=== PATIENT | female | born 1960 | race Caucasian/White ===

== ENCOUNTER 2017-03-24 12:32 | Inpatient (IN) | payer MEDICAID ==
[~2017-03-24] VITALS: Ht 154.9 cm; Wt 80.3 kg
[2017-03-24 12:40] VITALS: BP 133/69
[2017-03-24] MEDS ORDERED: NACL 0.9% 1,000 ML IV SCH (14:56)
[2017-03-24] MEDS ORDERED: ALUMINUM HYD/MAG/SIMETHICONE 30 ML, DICYCLOMINE HCL LIQUID 20 MG, LIDOCAINE VISCOUS 2% ... PO ONE ×3 (15:00)
[2017-03-24] MEDS ORDERED: KETOROLAC 30 MG/ML VIAL IVP ONE (15:00)
[2017-03-24] MEDS ORDERED: ONDANSETRON 4 MG/2 ML VIAL IVP ONE (15:00)
[2017-03-24 15:49] LABS: BASOPHILS # (AUTO) 0.2 K/uL (0.00-0.22); EOSINOPHILS # (AUTO) 0.1 K/uL (0-0.4); EOSINOPHILS % (AUTO) 1.2 % (0.0-4.0); HEMATOCRIT 43.3 % (36-48); LYMPHOCYTES % (AUTO) 33.6 % (20.5-51.1); MEAN CORPUSCULAR HEMOGLOBIN 28 pg (27-31); MEAN CORPUSCULAR HGB CONC 32 g/dL (33-37); MEAN CORPUSCULAR VOLUME 86 fL (80-94); MONOCYTES # (AUTO) 0.5 K/uL (0.8-1.0); NEUTROPHILS # (AUTO) 3.3 K/uL (1.8-7.7); PLATELET COUNT (AUTO) 154 K/uL (140-450); RED BLOOD CELL COUNT(AUTO) 5.01 MIL/uL (4.20-5.40); RED CELL DISTRIBUTION WIDTH 14.6 % (11.6-13.7); WHITE BLOOD COUNT (AUTO) 6.1 K/uL (4.8-10.8)
[2017-03-24 16:02] LABS: APPEARANCE,URINE CLEAR (CLEAR); BLOOD, URINE TRACE-I (NEGATIVE); COLOR,URINE YELLOW (YELLOW); LEUKOCYTE ESTERASE ,URINE TRACE (NEGATIVE); NITRITE, URINE NEGATIVE (NEGATIVE); PROTEIN,URINE NEGATIVE (NEGATIVE); UGLUCOSE NEGATIVE (NEGATIVE); UROBILINOGEN,URINE 0.2 EU/dL (0.2 - 1)
[2017-03-24 16:10] LABS: ANION GAP 14.3 (8-16); CALCIUM 9.7 mg/dL (8.5-10.1); CARBON DIOXIDE 27.9 mmol/L (21-32); CREATININE 0.8 mg/dL (0.6-1.3); POTASSIUM 4.2 mmol/L (3.5-5.1); TOTAL BILIRUBIN 3.6 mg/dL (0.0-1.0); TOTAL PROTEIN, SERUM 8.7 g/dL (6.4-8.2)
--- NOTE | 2017-03-24 16:15 | NUR ---
Pt taken to bed 8.
[2017-03-24 16:17] LABS: BILIRUBIN,URINE NEGATIVE (NEGATIVE)
[2017-03-24 16:21] LABS: BACTERIA,URINE 1+ /HPF (None Seen); RBC,URINE 0-3 /HPF (0-5); SQUAMOUS EPITHELIAL CELL,UR 0-3 /LPF (0-3 (FEW)); WBC,URINE 0-5 /HPF (0-5)
--- NOTE | 2017-03-24 16:23 | NUR ---
56/F c/o epigastric pain x2 weeks. Pt describes pain to epigastric area, dull, 3/10. Pt states the pain is worse after eating. Pt also c/o nausea and vomiting. Denies fever, c/o chills. AOX4, thai speaking. Skin warm and dry, jaundice. Abdomen soft, non tender, active bowel sounds x 4 quadrants. Denies s/s of UTI. VSS. Pt placed in a gown, placed on case monitor, pulse oximetry and blood pressure monitoring.
--- NOTE | 2017-03-24 16:35 | NUR ---
Patient being evaluated by physician at bedside.
--- NOTE | 2017-03-24 16:42 | NUR ---
Pt instructed to be NPO at this time per Dr. Leo order. Pt verbalized understanding.
--- NOTE | 2017-03-24 16:55 | NUR ---
PT ADMITS PAIN IS 2 / 10 AT THIS TIME, MEDICATED FOR PAIN CONTROL. WILL CONTINUE TO OBSERVE FOR PAIN CONTROL
[2017-03-24] MEDS ORDERED: PIPERACILLIN/TAZOBACTAM 4.5 GM in DEXTROSE 5% 100 ML IV ONE (17:45)
--- NOTE | 2017-03-24 17:45 | NUR ---
Pt ambulated to restroom with steady gait. Family is at bedside.
[2017-03-24] MEDS ORDERED: PIPERACILLIN/TAZOBACTAM 2.25 GM VIAL IV ONE (18:05)
--- NOTE | 2017-03-24 18:07 | NUR ---
Patient will be admitted to care of Dr. Ponce. GI consult Jenaro contacted and aware. Admited to Tele. Will go to room 105-B. Belongings list completed. Report to Mynor AMEZCUA.
--- NOTE | 2017-03-24 18:25 | NUR ---
PT ON UNIT FROM ER. PT AAOX4. NO S/S OF ACUTE DISTRESS. PT DENIES PAIN AT THIS TIME. IV SITE PATENT AND INTACT. SON AT BEDSIDE. PT ORIENTED TO ROOM. CALL LIGHT WITHIN REACH. SAFETY MEASURES ENSURED. WILL CONTINUE TO MONITOR.
[2017-03-24 18:30] VITALS: BP 132/70
--- NOTE | 2017-03-24 19:19 | NUR ---
ENDORSED PLAN OF CARE TO NIGHT RN. PT REMAINS STABLE.
--- NOTE | 2017-03-24 19:20 | NUR ---
RECEIVED REPORT FROM MORNING SHIFT RN AT BEDSIDE, PT IS AAOX4, ABLE TO FOLLOW COMMANDS AND MAKE NEEDS KNOWN, EGYPTIAN SPEAKING ONLY. VSS, DENIES PAIN, NO S/S OF SOB/DISTRESS, CLEAR LUNG SOUND, ON RA. DENIES CHEST PAIN, SR ON TELE MONITOR. TENDER ABDOMEN NOTED WITH ACTIVE BOWEL SOUNDS, CONTINENT WITH B&B, AMBULATE WITH STEADY GAIT, AFEBRILE, SKIN IS INTACT, WARM AND DRY TO TOUCH, IV SITE TO RIGHT AC 20GA, PATENT AND SL. EXPLAINED PLAN OF CARE TO PT AND FAMILY MEMBERS, VERBALIZED UNDERSTANDING, PLACED PATIENT AT A COMFORT POSITION, SAFETY MEASURES IN PLACE, CALL LIGHT WITHIN REACH, WILL CONTINUE TO MONITOR.
[2017-03-24] MEDS ORDERED: ACETAMINOPHEN 325 MG TAB PO PRN (19:45)
[2017-03-24] MEDS ORDERED: MORPHINE SULFATE 2 MG/ML SYR IVP PRN (19:45)
[2017-03-24] MEDS ORDERED: DOCUSATE SODIUM 100 MG GELCAP PO PRN (19:45)
[2017-03-24] MEDS ORDERED: ONDANSETRON 4 MG/2 ML VIAL IM/IVP PRN (19:45)
[2017-03-24 20:00] VITALS: BP 116/74
[2017-03-24 20:20] LABS: PARTIAL THROMBOPLASTIN TIME 25.4 secs (22-35.6)
[2017-03-24 20:23] LABS: PROTHROMBIN TIME 10.3 secs (10.8-13.4)
[2017-03-24 20:33] LABS: CHOL/HDL RATIO 4.2 (1-4.5); FREE T4 (FREE THYROXINE) 1.31 ng/dL (0.76-1.46); MAGNESIUM 2.1 mg/dL (1.8-2.4); THYROID STIMULATING HORMONE 1.82 uIU/mL (0.34-3.76)
--- NOTE | 2017-03-24 20:50 | NUR ---
DR. FLEMING CAME TO EVALUATE PT AT BEDSIDE, WILL CARRY OUT NEW ORDERS.
[2017-03-24] MEDS: NACL 0.9% 1,000 ML IV SCH (21:00)
--- NOTE | 2017-03-24 22:00 | NUR ---
PT SINGED THE INFORM CONSENT FOR SURGERY, EXPLAINED NPO AFTER MIDNIGHT, PT VERBALIZED UNDERSTANDING IT.
[2017-03-24] MEDS ORDERED: PIPERACILLIN/TAZOBACTAM 3.375 GM VIAL IV ONE (23:34)
[2017-03-24] MEDS: PIPER/TAZO 3.375GM/D5W PREMIX 50 ML IV SCH (23:43)
[2017-03-25] VITALS: BP 112/72
--- NOTE | 2017-03-25 | NUR ---
PT IS ASLEEP IN BED, NO CHANGE OF CONDITION AT THIS TIME, DENIES PAIN, VSS.
[2017-03-25 04:00] VITALS: BP 100/46
--- NOTE | 2017-03-25 04:00 | NUR ---
PT IS ASLEEP IN BED, DENIES PAIN, NO S/S OF DISTRESS, SR ON TELE MONITOR, VSS.
[2017-03-25] MEDS: NACL 0.9% 1,000 ML IV SCH ×2 (06:00→12:23)
[2017-03-25] MEDS: PIPER/TAZO 3.375GM/D5W PREMIX 50 ML IV SCH ×3 (06:17→17:09)
[2017-03-25] MEDS ORDERED: PIPERACILLIN/TAZOBACTAM 3.375 GM VIAL IV ONE (06:18)
[2017-03-25 06:51] LABS: BASOPHILS # (AUTO) 0.1 K/uL (0.00-0.22); BASOPHILS % (AUTO) 1.3 % (0.0-2.0); EOSINOPHILS # (AUTO) 0.1 K/uL (0-0.4); HEMOGLOBIN 13.3 g/dL (12.0-16.0); LYMPHOCYTES % (AUTO) 29.4 % (20.5-51.1); MEAN CORPUSCULAR HEMOGLOBIN 29 pg (27-31); MEAN CORPUSCULAR HGB CONC 33 g/dL (33-37); MEAN CORPUSCULAR VOLUME 86 fL (80-94); MONOCYTES # (AUTO) 0.6 K/uL (0.8-1.0); MONOCYTES % (AUTO) 9.5 % (1.7-9.3); NEUTROPHILS % (AUTO) 57.8 % (42.2-75.2); PLATELET COUNT (AUTO) 128 K/uL (140-450); RED BLOOD CELL COUNT(AUTO) 4.63 MIL/uL (4.20-5.40); RED CELL DISTRIBUTION WIDTH 14.6 % (11.6-13.7); WHITE BLOOD COUNT (AUTO) 6.8 K/uL (4.8-10.8)
[2017-03-25 06:56] LABS: ANION GAP 14.3 (8-16); CALCIUM 8.4 mg/dL (8.5-10.1); CARBON DIOXIDE 25.8 mmol/L (21-32); CREATININE 0.8 mg/dL (0.6-1.3); POTASSIUM 4.1 mmol/L (3.5-5.1)
--- NOTE | 2017-03-25 07:09 | NUR ---
REPORT GIVEN TO MORNING SHIFT NURSE FOR CONTINUE OF CARE, PT IS IN STABLE CONDITION AT THIS TIME.
[2017-03-25 07:10] LABS: ALBUMIN 3.3 g/dL (3.4-5.0); BILIRUBIN,DIRECT 2.6 mg/dL (0.0-0.3); PHOSPHORUS 3.7 mg/dL (2.5-4.9); TOTAL BILIRUBIN 3.9 mg/dL (0.0-1.0); TOTAL PROTEIN, SERUM 7.3 g/dL (6.4-8.2)
--- NOTE | 2017-03-25 07:10 | NUR ---
RECEIVED PATIENT REPORT AT BEDSIDE. PATIENT AWAKE, ALERT, AND ORIENTED. NO S/S OF DISTRESS NOTED. PATIENT ON ROOM AIR. PT DENIES PAIN. PATIENT SCHEDULED TO HAVE ERCP DONE TODAY. PATIENT AWARE. PATIENT ON TELE MONITORING. IV LINE TO THE RIGHT AC INTACT WITH IVF INFUSING WELL. BED LOWERED WITH CALL LIGHT WITHIN REACH. WILL CONTINUE TO MONITOR
[2017-03-25 08:00] VITALS: BP 105/55
[2017-03-25] MEDS ORDERED: PROPOFOL 200 MG/20 ML VIAL IV ONE (08:04)
--- NOTE | 2017-03-25 08:06 | NUR ---
PT LEFT THE UNIT FOR ERCP
[2017-03-25] MEDS: LACTOBACILLUS RHAMNOSUS GG 1 EACH CAP PO SCH (09:00)
--- NOTE | 2017-03-25 09:01 | NUR ---
PATIENT HAS BEEN SCREENED AND CATEGORIZED HIGH NUTRITION RISK. PATIENT WILL BE SEEN WITHIN 1-2 DAYS OF ADMISSION. 03/25/17-03/26/[address] Addendum: 03/25/17 at [address] PATIENT HAS BEEN RESCREENED AND RE-CATEGORIZED MODERATE NUTRITION RISK. PATIENT WILL BE SEEN WITHIN 3-5 DAYS OF ADMISSION. 03/27/17-03/29/[address]
--- NOTE | 2017-03-25 10:00 | NUR ---
PATIENT BACK IN THE UNIT. PATIENT AWAKE, ALERT, AND ORIENTED. NO C/O OF PAIN. TEMP 97.0 HR: 71 BP: 116/61 O2: 97% ON ROOM AIR
--- NOTE | 2017-03-25 10:10 | NUR ---
PER DR FLEMING, KEEP PATIENT NPO UNTIL SEEN BY SURGEON. OK TO GIVE ICE CHIPS
--- NOTE | 2017-03-25 11:00 | NUR ---
SPOKE WITH DR VAZQUEZ. ORDERS TO OBTAIN CONSENT FOR LAPAROSCOPIC CHOLECYSTECTOMY, POSSIBLE CHOLANGIOGRAM, POSSIBLE EXPLORATORY LAPAROTOMY. ORDERS FULL LIQUID DIET FOR THE PATIENT, NPO EXCEPT MEDS AFTER MIDNIGHT.
[2017-03-25 12:00] VITALS: BP 124/58
[2017-03-25 16:00] VITALS: BP 123/56
--- NOTE | 2017-03-25 19:47 | NUR ---
PATIENT REPORT GIVEN AT BEDSIDE. PATIENT ENDORSED IN STABLE CONDITION
--- NOTE | 2017-03-25 19:48 | NUR ---
RECEIVED PT FROM LINNETTE AMEZCUA PT IS AAOX4 AMBULATORY , ON TELEMETRY SRIV ON RT FA INFUSING WELL RELATIVES AT BED SIDE AND DR VAZQUEZ AT BED SIDE EXPLAIN TO THE PT TO BE NPO FOR SURGERY TOMORRO AND TO SIGN CONSENT
[2017-03-25 20:00] VITALS: BP 119/62
--- NOTE | 2017-03-25 21:04 | NUR ---
PT RESTING ON BED DENIES ANY PAIN AT THIS TIME ON TELMETRY SR , VOIDING WELL
[2017-03-26] VITALS: BP 118/68
--- NOTE | 2017-03-26 | NUR ---
PT NKPO POST MD REMAIN STABLE NOT DISTRESS NOTED ON TELEMETRY SR
[2017-03-26] MEDS: PIPER/TAZO 3.375GM/D5W PREMIX 50 ML IV SCH ×4 (00:27→17:05)
[2017-03-26] MEDS: NACL 0.9% 1,000 ML IV SCH ×2 (00:28→05:03)
[2017-03-26 04:00] VITALS: BP 107/59
--- NOTE | 2017-03-26 04:00 | NUR ---
DENIES ANY PAIN NOT DISTRESS NOTED ON TELEMETRY SR VOIDING WELL
--- NOTE | 2017-03-26 06:28 | NUR ---
PT NPO CONSENT SIGNED AND TICKET TO RIDE READY FOR LAPAROSCOPY PAYAL POSS OPEN
--- NOTE | 2017-03-26 07:10 | NUR ---
RECEIVED PATIENT REPORT. PATIENT AWAKE, ALERT, AND ORIENTED. NO S/S OF DISTRESS NOTED. NO C/O PAIN AT THIS TIME. PATIENT'S DAUGHTER PRESENT AT BEDSIDE. IV LINE TO THE RIGHT AC INTACT WITH IVF INFUSING WELL. PATIENT SCHEDULED TO HAVE LAP PAYAL TODAY. PATIENT ON TELE MONITORING. BED LOWERED WITH CALL LIGHT WITHIN REACH. WILL CONTINUE TO MONITOR
[2017-03-26 07:33] LABS: BASOPHILS # (AUTO) 0.1 K/uL (0.00-0.22); BASOPHILS % (AUTO) 1.6 % (0.0-2.0); EOSINOPHILS # (AUTO) 0.2 K/uL (0-0.4); HEMATOCRIT 38.1 % (36-48); HEMOGLOBIN 12.7 g/dL (12.0-16.0); MEAN CORPUSCULAR HEMOGLOBIN 29 pg (27-31); MEAN CORPUSCULAR HGB CONC 33 g/dL (33-37); MEAN CORPUSCULAR VOLUME 87 fL (80-94); MONOCYTES # (AUTO) 0.5 K/uL (0.8-1.0); MONOCYTES % (AUTO) 8.2 % (1.7-9.3); NEUTROPHILS % (AUTO) 53.2 % (42.2-75.2); PLATELET COUNT (AUTO) 136 K/uL (140-450); RED BLOOD CELL COUNT(AUTO) 4.37 MIL/uL (4.20-5.40); RED CELL DISTRIBUTION WIDTH 14.6 % (11.6-13.7); WHITE BLOOD COUNT (AUTO) 5.8 K/uL (4.8-10.8)
--- NOTE | 2017-03-26 07:58 | NUR ---
PATIENT LEFT THE UNIT FOR LAP PAYAL
[2017-03-26 08:00] VITALS: BP 128/79
[2017-03-26 08:01] LABS: AMYLASE 42 U/L (25-115); LIPASE 172 U/L (73-393)
[2017-03-26 08:03] LABS: ANION GAP 13.6 (8-16); CREATININE 0.7 mg/dL (0.6-1.3); POTASSIUM 3.6 mmol/L (3.5-5.1); TOTAL BILIRUBIN 1.8 mg/dL (0.0-1.0); TOTAL PROTEIN, SERUM 6.7 g/dL (6.4-8.2)
[2017-03-26] MEDS ORDERED: BUPIVACAINE-MPF/EPI 0.25% 30 ML VIAL INJ ONE (08:12)
[2017-03-26] MEDS ORDERED: MIDAZOLAM 2 MG/2 ML VIAL ONE (08:12)
[2017-03-26] MEDS ORDERED: fentaNYL 0.05 MG/ML VIAL ONE (08:13)
[2017-03-26] MEDS ORDERED: DESFLURANE 240 ML BTL INH ONE (08:17)
[2017-03-26] MEDS ORDERED: ROCURONIUM 50 MG/5 ML VIAL IV ONE (08:17)
[2017-03-26] MEDS ORDERED: PROPOFOL 200 MG/20 ML VIAL IV ONE (08:17)
[2017-03-26] MEDS ORDERED: DEXAMETHASONE 4 MG/ML VIAL ONE (08:17)
[2017-03-26] MEDS ORDERED: GLYCOPYRROLATE 0.2 MG/ML VIAL ONE (08:17)
[2017-03-26] MEDS ORDERED: KETOROLAC 30 MG/ML VIAL ONE (08:17)
[2017-03-26] MEDS ORDERED: ONDANSETRON 4 MG/2 ML VIAL ONE ×2 (08:17→10:40)
[2017-03-26] MEDS ORDERED: SUCCINYLCHOLINE CHLORIDE 200 MG/10 ML VIAL IVP ONE (08:17)
[2017-03-26] MEDS ORDERED: NEOSTIGMINE 1:1000 10 MG/10 ML VIAL ONE (08:17)
[2017-03-26] MEDS ORDERED: LIDOCAINE 2% 100 MG/5 ML SYR IVP ONE (08:17)
[2017-03-26] MEDS: LACTOBACILLUS RHAMNOSUS GG 1 EACH CAP PO SCH (09:00)
[2017-03-26] MEDS ORDERED: ONDANSETRON 4 MG/2 ML VIAL IVP PRN (09:10)
[2017-03-26 09:32] LABS: T4 (THYROXINE) 11.2 ug/dL (4.5-12.0)
[2017-03-26] MEDS ORDERED: THROMBIN KIT 20 MU VIAL TP ONE (09:43)
[2017-03-26] MEDS: HYDROmorphone 1 MG/ML AMP IVP PRN ×4 (10:25→10:55)
[2017-03-26] MEDS ORDERED: HYDROmorphone PFS 2 MG/ML SYR ONE (10:39)
[2017-03-26 11:03] LABS: TOTAL BILIRUBIN 1.8 mg/dL (0.0-1.0); TOTAL PROTEIN, SERUM 6.7 g/dL (6.4-8.2)
--- NOTE | 2017-03-26 11:03 | NUR ---
PT OFF UNIT
--- NOTE | 2017-03-26 11:30 | NUR ---
PATIENT BACK FROM SURGERY. PATIENT AWAKE BUT LETHARGIC. VSS WITHIN NORMAL LIMITS. NO C/O PAIN AT THIS TIME. 4 LAPAROSCOPIC INCISIONS NOTED TO THE ABDOMEN. INCISIONS CLEAN DRY AND INTACT. WILL CONTINUE TO MONITOR
[2017-03-26 11:42] LABS: ANION GAP 16.9 (8-16); CARBON DIOXIDE 22.8 mmol/L (21-32); CREATININE 0.8 mg/dL (0.6-1.3); POTASSIUM 3.7 mmol/L (3.5-5.1)
[2017-03-26 11:48] LABS: TOTAL BILIRUBIN 1.6 mg/dL (0.0-1.0); TOTAL PROTEIN, SERUM 6.8 g/dL (6.4-8.2)
[2017-03-26] MEDS: DEXT 5% / NACL 0.45% 1,000 ML IV SCH ×2 (11:52→20:15)
[2017-03-26 12:00] VITALS: BP 105/57
[2017-03-26 16:00] VITALS: BP 113/59
--- NOTE | 2017-03-26 17:10 | NUR ---
ASSISTED PATIENT TO AMBULATE TO THE BATHROOM TO VOID BUT PATIENT C/O OF DIZZINESS AND REQUESTED TO JUST USE THE BED HAN. PATIENT REPORTS OF TOLERABLE PAIN. VITAL SIGNS WITHIN NORMAL LIMITS. WILL CONTINUE TO MONITOR
[2017-03-26] MEDS: HYDROcodone/APAP 7.5/325 MG 1 TAB PO PRN (19:04)
--- NOTE | 2017-03-26 19:34 | NUR ---
PATIENT IS CURRENTLY RESTING IN BED GHANAIAN SPEAKING IVF INFUSING WELL IV SITE PATENT,ABD INCISION X3 CURRENTLY DRY AND INTACT PATIENT DENIES PAIN.CONTINUES TO HAVE SCD'S TO BOTH LOWER EXTREMITIES.PATIENT USED THE BEDSIDE COMMODE AND VOIDED AGAIN.FAMILY AT BEDSIDE WILL CONTINUE TO MONITOR.
--- NOTE | 2017-03-26 19:34 | NUR ---
PATIENT REPORT GIVEN AT BEDSIDE. PATIENT ENDORSED IN STABLE CONDITION
--- NOTE | 2017-03-26 19:55 | NUR ---
BED LINEN AND BED PADS CHANGED PER PATIENT'S REQUEST.
--- NOTE | 2017-03-26 20:00 | NUR ---
Patient's Plan of Care was discussed and reviewed with VETERINARY LABORATORY TECHNICIAN: OLEG FLYNN
[2017-03-26 20:48] VITALS: BP 135/79
--- NOTE | 2017-03-26 21:30 | NUR ---
PATIENT IS CURRENTLY SLEEPING COMFORTABLY IN BED AT THIS TIME WILL CONTINUE TO MONITOR.CALL LIGHT WITHIN REACH.
[2017-03-27 00:01] VITALS: BP 111/66
--- NOTE | 2017-03-27 00:15 | NUR ---
PATIENT ASSISTED TO THE BATHROOM AND BACK TO BED PATIENT TOLERATED ACTIVITY WELL.CONTINUES TO HAVE SCD'S IN PLACE AND STATES,"I WOULD LIKE SOME PAIN MEDICATION PATIENT STATES HER PAIN IS INCREASING TO 5/10."PATIENT WILL BE MEDICATED FOR PAIN.CALL LIGHT WITHIN REACH WILL CONTINUE TO MONITOR. Addendum: 03/27/17 at 0102 by Lexus Mcdonald LVN ACTUAL TIME ASSISTED TO THE BATHROOM WAS 0030
[2017-03-27] MEDS: DEXT 5% / NACL 0.45% 1,000 ML IV SCH ×3 (00:37→12:18)
[2017-03-27] MEDS: PIPER/TAZO 3.375GM/D5W PREMIX 50 ML IV SCH ×2 (00:41→05:34)
[2017-03-27] MEDS: HYDROcodone/APAP 7.5/325 MG 1 TAB PO PRN ×4 (00:41→20:48)
--- NOTE | 2017-03-27 02:24 | NUR ---
PATIENT IS CURRENTLY SLEEPING IN BED IVF INFUSING WELL IV SITE PATENT.WILL CONTINUE TO MONITOR.
--- NOTE | 2017-03-27 04:02 | NUR ---
PATIENT SLEEPING COMFORTABLY IN BED IN NO DISTRESS WILL CONTINUE TO MONITOR.CALL LIGHT WITHIN REACH.
--- NOTE | 2017-03-27 06:00 | NUR ---
PATIENT STABLE RESTING IN BED IVF INFUSING WELL IV SITE PATENT NO COMPLAINS OF PAIN OR DISCOMFORT NOTED.
[2017-03-27 06:27] LABS: BASOPHILS # (AUTO) 0.1 K/uL (0.00-0.22); BASOPHILS % (AUTO) 0.8 % (0.0-2.0); EOSINOPHILS # (AUTO) 0.1 K/uL (0-0.4); EOSINOPHILS % (AUTO) 1.4 % (0.0-4.0); HEMATOCRIT 38.2 % (36-48); HEMOGLOBIN 12.6 g/dL (12.0-16.0); LYMPHOCYTES # (AUTO) 1.4 K/uL (2.5-16.5); LYMPHOCYTES % (AUTO) 13.2 % (20.5-51.1); MEAN CORPUSCULAR HEMOGLOBIN 29 pg (27-31); MEAN CORPUSCULAR HGB CONC 33 g/dL (33-37); MEAN CORPUSCULAR VOLUME 87 fL (80-94); MONOCYTES # (AUTO) 0.8 K/uL (0.8-1.0); MONOCYTES % (AUTO) 8.1 % (1.7-9.3); NEUTROPHILS # (AUTO) 7.9 K/uL (1.8-7.7); NEUTROPHILS % (AUTO) 76.5 % (42.2-75.2); PLATELET COUNT (AUTO) 165 K/uL (140-450); RED CELL DISTRIBUTION WIDTH 14.3 % (11.6-13.7); WHITE BLOOD COUNT (AUTO) 10.3 K/uL (4.8-10.8)
[2017-03-27 07:09] LABS: ANION GAP 10.4 (8-16); CALCIUM 8.1 mg/dL (8.5-10.1); CARBON DIOXIDE 29.1 mmol/L (21-32); CREATININE 0.8 mg/dL (0.6-1.3); POTASSIUM 3.5 mmol/L (3.5-5.1); TOTAL BILIRUBIN 1.6 mg/dL (0.0-1.0)
--- NOTE | 2017-03-27 07:24 | NUR ---
REPORT ENDORSED TO SEVEN QUIGLEY SHE WILL RESUME CARE OF THE PATIENT.
--- NOTE | 2017-03-27 07:25 | NUR ---
Received patient from service delivery manager, RN, patient alert, awake and oriented x 4 denies any pain, daughter at bedside.
[2017-03-27 08:00] VITALS: BP 127/71
[2017-03-27] MEDS ORDERED: LACTOBACILLUS RHAMNOSUS GG 1 EACH CAP PO SCH (12:14)
[2017-03-27 12:41] LABS: HEMOGLOBIN A1C 5.6 % (4.8-5.6)
--- NOTE | 2017-03-27 14:42 | NUR ---
patient tolerated her lunch well, no nausea and vomiting, denies pain at this time
--- NOTE | 2017-03-27 18:42 | NUR ---
Patient now sleeping, resting comfortably in bed, family at bedside, no signs of distress noted.
--- NOTE | 2017-03-27 19:06 | NUR ---
SBAR report given to Shila, RN at bedside, patient now awake, denies any pain at this time.
--- NOTE | 2017-03-27 19:25 | NUR ---
RECEIVED FROM AM RN AWAKE AND ALERT. NO SOB. DENIES PAIN AT THIS TIME. SITTING IN CHAIR AND SON WITH HER. CALL LIGHT WITH IN REACH AND CARE PLANS FOR THE NIGHT EXPLAINED TO THEM. DX. OF COMMON BILE DUCT OBSTRUCTION. S/P LAP CHOLECYSTECTOMY 03/25/17. ABLE TO VERBALIZE NEEDS WELL IN IRISH. IVF SITE TO RIGHT HAND INTACT AND NO INFILTRATION NOTED.
[2017-03-27 20:04] VITALS: BP 126/71
--- NOTE | 2017-03-27 22:30 | NUR ---
PT. AMBULATING THE HALLWAY WITH DAUGHTER BESIDE HER. ENCOURAGED TO CALL IF SHE NEEDS ANY HELP. NO SOB.
--- NOTE | 2017-03-28 00:31 | NUR ---
SLEEPING AT THIS TIME. NO RESTLESSNESS. CALL LIGHT WITH IN REACH.
--- NOTE | 2017-03-28 03:17 | NUR ---
WOKE UP AND REQUESTED FOR BLANKET RT SHE SAID SHE IS SO COLD. PROVIDED WITH WARM BLANKET. WENT BACK TO SLEEP. NO COMPLAINTS DONE FURTHER. CALL LIGHT WITH IN REACH.
[2017-03-28] MEDS: HYDROcodone/APAP 7.5/325 MG 1 TAB PO PRN (04:47)
--- NOTE | 2017-03-28 04:53 | NUR ---
WOKE UP AND REQUESTED FOR JUICE AND PAIN RELIEVER. MEDICATED REQUESTED. DAUGHTER AT BEDSIDE. USES CALL LIGHT FOR HELP. NO BLEEDING TO INCISION SITE.
[2017-03-28 05:55] LABS: BASOPHILS # (AUTO) 0.2 K/uL (0.00-0.22); BASOPHILS % (AUTO) 1.4 % (0.0-2.0); EOSINOPHILS # (AUTO) 0.1 K/uL (0-0.4); EOSINOPHILS % (AUTO) 0.7 % (0.0-4.0); HEMATOCRIT 37.9 % (36-48); HEMOGLOBIN 12.3 g/dL (12.0-16.0); MEAN CORPUSCULAR HEMOGLOBIN 28 pg (27-31); MEAN CORPUSCULAR HGB CONC 33 g/dL (33-37); MEAN CORPUSCULAR VOLUME 87 fL (80-94); MONOCYTES % (AUTO) 9.3 % (1.7-9.3); NEUTROPHILS # (AUTO) 7.4 K/uL (1.8-7.7); NEUTROPHILS % (AUTO) 69.6 % (42.2-75.2); RED BLOOD CELL COUNT(AUTO) 4.37 MIL/uL (4.20-5.40); RED CELL DISTRIBUTION WIDTH 13.9 % (11.6-13.7)
[2017-03-28 06:17] LABS: CALCIUM 8.5 mg/dL (8.5-10.1); CREATININE 0.7 mg/dL (0.6-1.3)
--- NOTE | 2017-03-28 06:32 | NUR ---
SLEEPING STILL AT THIS TIME . NO COMPLAINTS DONE.
--- NOTE | 2017-03-28 07:05 | NUR ---
ASSUMED CONTINUITY OF CARE. NO SIGNS AND SYMPTOMS OF ACUTE DISTRESS NOTED. INITIAL ASSESSMENT DONE. KEEP COMFORTABLE ON BED. PT. DAUGHTER -BLANCA ON BEDSIDE. EXPLAINED DIAGNOSIS, PLAN OF CARE, POST-OP CARE, PAIN MANAGEMENT TEACHING, USE OF CALL LIGHT/BED/TV/BATHROOM. VERBALIZED UNDERSTANDING. CALL LIGHT WITHIN REACH.
[2017-03-28 07:38] LABS: PLATELET COUNT (AUTO) 130 K/uL (140-450); WHITE BLOOD COUNT (AUTO) 10.7 K/uL (4.8-10.8)
[2017-03-28 07:54] VITALS: BP 94/51
[2017-03-28] MEDS: LACTOBACILLUS RHAMNOSUS GG 1 EACH CAP PO SCH (08:30)
[2017-03-28] MEDS ORDERED: POTASSIUM CHLORIDE 40 MEQ, LIDOCAINE 1% 25 MG in NACL 0.9% 250 ML IV SCH (10:00)
--- NOTE | 2017-03-28 10:31 | NUR ---
AMBULATES ON HALLWAY, ACCOMPANIED BY PT. DAUGHTER -BLANCA. PT. TOLERATED WELL. NO C/O PAIN. NO SOB, NOTED.
[2017-03-28] MEDS ORDERED: MAGNESIUM HYDROXIDE 2400 MG/30 ML UDC PO PRN (10:35)
[2017-03-28 12:00] VITALS: BP 129/71
[2017-03-28] MEDS ORDERED: POTASSIUM CHLORIDE 20% 40 MEQ/15 ML UDC PO SCH (12:00)
--- NOTE | 2017-03-28 12:00 | NUR ---
VITALS SIGNS STABLE. NO C/O PAIN. WILL MONITOR.
[2017-03-28 13:20] LABS: CALCIUM 8.6 mg/dL (8.5-10.1); CARBON DIOXIDE 30.7 mmol/L (21-32); CREATININE 0.6 mg/dL (0.6-1.3); POTASSIUM 3.7 mmol/L (3.5-5.1); TOTAL BILIRUBIN 1.2 mg/dL (0.0-1.0); TOTAL PROTEIN, SERUM 7.4 g/dL (6.4-8.2)
[2017-03-28] MEDS ORDERED: ACET-2869 PO (13:44)
[2017-03-28] MEDS ORDERED: DOCU-264 PO (13:44)
--- NOTE | 2017-03-28 15:08 | NUR ---
D/C VIA WHEELCHAIR, ACCOMPANIED BY PT. DAUGHTER -BLANCA. NO C/O PAIN. NO ACUTE DISTRESS NOTED. IN STABLE CONDITION. INFORMED CHARGE NURSE GRACIE FUNK.
== END 2017-03-28 15:08 | disposition home or self-care (01) | DRG 263 ==
LOC: MED 12:32 → MTU 18:18
PROVIDERS: ADMIT Family Medicine; ATTEND Family Medicine
PROC: 0F798ZZ Dilation of Common Bile Duct, Via Natural or Artificial Opening Endoscopic (ICD-10-PCS; 2017-03-25)
PROC: 0FC98ZZ Extirpation of Matter from Common Bile Duct, Via Natural or Artificial Opening Endoscopic (ICD-10-PCS; 2017-03-25)
PROC: BF101ZZ Fluoroscopy of Bile Ducts using Low Osmolar Contrast (ICD-10-PCS; 2017-03-25)
PROC: 0FT44ZZ Resection of Gallbladder, Percutaneous Endoscopic Approach (ICD-10-PCS; principal; 2017-03-26 09:10)
DX: K80.63 Calculus of gallbladder and bile duct with acute cholecystitis with obstruction (principal); K26.9 Duodenal ulcer, unspecified as acute or chronic, without hemorrhage or perforation; N39.0 Urinary tract infection, site not specified; E78.5 Hyperlipidemia, unspecified; E66.9 Obesity, unspecified; K66.0 Peritoneal adhesions (postprocedural) (postinfection); Z68.33 Body mass index [BMI] 33.0-33.9, adult
CPT/HCPCS: 36415; 71010; 76705; 80048; 80053; 80076; 81001; 82150; 83036; 83690; 83735; 83880; 84100; 84436; 84439; 84443; 84479; 84703; 85025; 85610; 85730; 86886; 86900; 86901; 87081; 87086; 93005; 96361; 96374; 96375; 99285; C1769; J0330; J1100; J1170; J1885; J2001; J2250; J2405; J2543; J2704; J2710; J3010; J3480; J3490; J7030; J7042; J7060; Q0092